=== PATIENT | male | born 1980 | race Caucasian/White ===

== ENCOUNTER 2017-07-25 14:50 | Emergency (ER) | payer OTHER ==
[2017-07-25 14:58] VITALS: BP 127/84; PULSE 84; RESP 18; TEMP 96.8
[2017-07-25] MEDS ORDERED: IBUPROFEN 600 MG TAB PO STA (15:36)
--- NOTE | 2017-07-25 15:42 | ED ---
Skin/Abscess/FB HPI - General Chief complaint: Skin/Abscess/Foreign Body Stated complaint: Bug Bite Time Seen by Provider: 07/25/17 15:06 Source: patient, RN notes reviewed Mode of arrival: ambulatory Limitations: no limitations - History of Present Illness Initial comments: This is a 36-year-old male who presents to the emergency department with chief complaint of bug bite. Patient states that he woke up yesterday morning and had redness and tenderness to his lateral right lower extremity. He states he believes he was bit by a spider. He reports spreading of redness and tenderness from his ankle up to his mid calf. He states that one month ago he moved to [place] and traveled here by a vehicle. He denies any history of blood clots or clotting disorders. Denies recent hospitalizations or surgeries. Denies fevers or chills, chest pain shortness of breath, abdominal pain, nausea or vomiting. - Related Data Previous Rx's Medication Instructions Recorded Sulfamethox-Tmp 800-160Mg [Bactrim 1 tab PO Q12HR #20 tab 07/25/17 DS 800-160 mg] Allergies Allergy/AdvReac Type Severity Reaction Status Date / Time No Known Allergies Allergy Verified 07/25/17 15:39 Review of Systems ROS Statement: Those systems with pertinent positive or pertinent negative responses have been documented in the HPI. ROS Other: All systems not noted in ROS Statement are negative. Past Medical History Past Medical History: No Reported History History of Any Multi-Drug Resistant Organisms: None Reported Past Surgical History: No Surgical Hx Reported Past Psychological History: Anxiety Smoking Status: Current every day smoker Past Alcohol Use History: Occasional Past Drug Use History: None Reported General Exam - General Exam Comments Initial Comments: General: Awake and alert, well-developed; in no apparent distress. HEENT: Head atraumatic, normocephalic. Pupils are equal, round and reactive to light. Extraocular movements intact. Oropharynx moist without erythema or exudate. Neck: Supple. Normal ROM. Cardiovascular: Regular rate and rhythm. No murmurs, rubs or gallops. Chest symmetrical. Respiratory: Lungs clear to auscultation bilaterally. No wheezes, rales or rhonchi. Normal respiratory effort with no use of accessory muscles. Musculoskeletal: Normal ROM bilateral upper and lower extremities. Ambulating normally. Skin: Muddy, warm and dry. Approximately 1 cm in diameter circular area of induration with central crusting and surrounding erythema that spreads from the right ankle up to the right mid calf. This area is tender. There is also tenderness on palpation of the proximal calf. Sensation is intact. Pedal pulses are 2+ equal and palpable bilaterally. Neurological: Alert and oriented x3. CN II-XII grossly intact. Speech is fluent and answers are appropriate. No focal neuro deficits. Psychiatric: Normal mood and affect. No overt signs of depression or anxiety noted. Limitations: no limitations Course Vital Signs 07/25/17 14:53 Temperature 96.8 F L Pulse Rate 84 Respiratory 18 Rate Blood Pressure 127/84 Medical Decision Making - Medical Decision Making This is a 36-year-old male who presents to the emergency department with chief complaint of right lower extremity bug bite. Patient states he believes he was bit by a spider 2 nights ago. He states he woke up with redness and swelling to his right ankle. Since then tenderness and redness has spread. On physical examination there is an erythematous central lesion with surrounding erythema that extends from the right ankle to the mid calf. This area is tender on palpation. Patient did report tenderness with palpation of the proximal calf. An ultrasound venous Doppler of the right lower extremity was obtained and revealed no evidence for an acute DVT. Patient is likely suffering from cellulitis and will be started on antibiotics. Patient given first dose here in the emergency department. Vital signs are stable and he is in no acute distress. He'll be discharged home at this time. All questions answered. - Radiology Data Radiology results: report reviewed Right lower extremity ultrasound venous doppler impression: Right lower extremity venous ultrasound negative for deep venous thrombosis. Disposition Clinical Impression: Cellulitis Disposition: HOME SELF-CARE Condition: Good Instructions: Cellulitis (ED), Insect Bite or Sting (ED) Additional Instructions: Please take medications as prescribed. Please follow up with primary care provider within 1-2 days. Return to emergency department if symptoms should worsen or any concerns arise. Prescriptions: Sulfamethox-Tmp 800-160Mg [Bactrim DS 800-160 mg] 1 tab PO Q12HR #20 tab Is patient prescribed a controlled substance at d/c from ED?: No Referrals: None,Stated [Primary Care Provider] - 1-2 days Time of Disposition: 16:41
--- NOTE | 2017-07-25 16:20 | US ---
EXAMINATION TYPE: US venous doppler duplex LE RT DATE OF EXAM: 07/25/2017 4:09 PM COMPARISON: NONE CLINICAL HISTORY: Pain. Patient believes he was bit by a spider on the right ankle. Redness and pain right ankle SIDE PERFORMED: Right TECHNIQUE: The lower extremity deep venous system is examined utilizing real time linear array sonog ros with graded compression, doppler sonography and color-flow sonography. VESSELS IMAGED: External Iliac Vein (EIV) Common Femoral Vein Deep Femoral Vein Greater Saphenous Vein * Femoral Vein Popliteal Vein Small Saphenous Vein * Proximal Calf Veins (* superficial vessels) Right Leg: Negative for DVT Small amount of edema visualized at the area of the patient's red lump at the right ankle. IMPRESSION: 1. Right lower extremity venous ultrasound negative for deep venous thrombosis. 2. Incidental note is made of mild edema at the level of the patient's redness and lump at the ankle.
[2017-07-25] MEDS ORDERED: SULFAMETHOX-TMP 800-160MG 1 EACH TAB PO STA (16:39)
== END 2017-07-25 16:48 | disposition home or self-care (01) ==
LOC: EC 14:50
DX: L03.115 Cellulitis of right lower limb (principal); F17.200 Nicotine dependence, unspecified, uncomplicated; W57.XXXA Bitten or stung by nonvenomous insect and other nonvenomous arthropods, initial encounter
CPT/HCPCS: 99283

== ENCOUNTER 2017-09-20 03:41 | Observation (INO) | payer MEDICARE, OTHER ==
[2017-09-20] MEDS ORDERED: ASPIRIN 81 MG PO STA (04:16)
[2017-09-20] MEDS ORDERED: NITROGLYCERIN SL TABS 0.4 MG TAB SUBLINGUAL STA ×3 (04:16)
--- NOTE | 2017-09-20 04:18 | ED ---
General Adult HPI - General Chief complaint: Chest Pain Stated complaint: CHEST PAIN Time Seen by Provider: 09/20/17 03:52 Source: patient, family, RN notes reviewed Mode of arrival: wheelchair Limitations: no limitations - History of Present Illness Initial comments: Patient is a pleasant 36-year-old male presenting to the emergency Department with complaints of chest discomfort. Onset of symptoms was a couple weeks ago. Became more significantly severe prior to arrival. Patient has sharp discomfort left sternal region. Earlier there was some radiation to the back however that has resolved. Patient does have associated nausea and some vomiting. No dyspnea. No diaphoresis. Patient does have a history of chronic severe reflux however that feels different from this. Patient has been considering surgery for his reflux. - Related Data Home Medications Medication Instructions Recorded Confirmed No Known Home Medications 09/20/17 09/20/17 Allergies Allergy/AdvReac Type Severity Reaction Status Date / Time No Known Allergies Allergy Verified 07/25/17 15:39 Review of Systems ROS Statement: Those systems with pertinent positive or pertinent negative responses have been documented in the HPI. ROS Other: All systems not noted in ROS Statement are negative. Constitutional: Denies: fever Eyes: Denies: eye pain ENT: Denies: ear pain Respiratory: Denies: cough Cardiovascular: Reports: chest pain Endocrine: Denies: fatigue Gastrointestinal: Reports: nausea, vomiting Genitourinary: Denies: dysuria Musculoskeletal: Denies: arthralgia Skin: Denies: rash Neurological: Denies: weakness Past Medical History Past Medical History: No Reported History Additional Past Medical History / Comment(s): Acid Reflux History of Any Multi-Drug Resistant Organisms: None Reported Past Surgical History: No Surgical Hx Reported Past Psychological History: Anxiety Smoking Status: Current every day smoker Past Alcohol Use History: None Reported, Occasional Past Drug Use History: None Reported General Exam Limitations: no limitations General appearance: alert, in no apparent distress Head exam: Present: atraumatic Eye exam: Present: normal appearance, PERRL ENT exam: Present: normal oropharynx Neck exam: Present: normal inspection Respiratory exam: Present: normal lung sounds bilaterally. Absent: chest wall tenderness Cardiovascular Exam: Present: regular rate, normal rhythm Expanded Peripheral pulses: 2+: Radial (R), Radial (L), Dorsalis Pedis (R), Dorsalis Pedis (L) GI/Abdominal exam: Present: soft. Absent: tenderness Extremities exam: Present: normal inspection. Absent: pedal edema, calf tenderness Neurological exam: Present: alert Psychiatric exam: Present: normal affect, normal mood Skin exam: Present: normal color Course Vital Signs 09/20/17 09/20/17 03:44 04:19 Temperature 98.3 F Pulse Rate 54 L 62 Respiratory 20 16 Rate Blood Pressure 137/91 137/93 O2 Sat by Pulse 100 100 Oximetry EKG Findings - EKG Comments: EKG Findings:: Sinus bradycardia 55. First-degree AV block with NE of 212. QRS 92. QT 410. QTc 392. Normal axis. Normal QRS. No acute ST change. Medical Decision Making - Medical Decision Making Patient reevaluated and resting comfortably in bed. Symptoms have resolved following nitroglycerin. Patient and family are updated on results and plan. Case was discussed in detail with Dr. Ward, who will admit for hospital call. - Lab Data Result diagrams: 09/20/17 04:29 09/20/17 04:29 Lab Results 09/20/17 09/20/17 09/20/17 Range/Units 04:29 04:29 04:29 WBC 12.1 H (3.8-10.6) k/uL RBC 4.87 (4.30-5.90) m/uL Hgb 13.7 (13.0-17.5) gm/dL Hct 43.6 (39.0-53.0) % MCV 89.5 (80.0-100.0) fL MCH 28.0 (25.0-35.0) pg MCHC 31.3 (31.0-37.0) g/dL RDW 13.8 (11.5-15.5) % Plt Count 201 (150-450) k/uL Neutrophils % 81 % Lymphocytes % 12 % Monocytes % 4 % Eosinophils % 3 % Basophils % 0 % Neutrophils # 9.8 H (1.3-7.7) k/uL Lymphocytes # 1.4 (1.0-4.8) k/uL Monocytes # 0.5 (0-1.0) k/uL Eosinophils # 0.3 (0-0.7) k/uL Basophils # 0.0 (0-0.2) k/uL PT (9.0-12.0) sec INR (<1.2) APTT (22.0-30.0) sec D-Dimer (<0.60) mg/L FEU Sodium 143 (137-145) mmol/L Potassium 4.0 (3.5-5.1) mmol/L Chloride 110 H (98-107) mmol/L Carbon Dioxide 24 (22-30) mmol/L Anion Gap 9 mmol/L BUN 13 (9-20) mg/dL Creatinine 0.82 (0.66-1.25) mg/dL Est GFR (CKD-EPI)AfAm >90 (>60 ml/min/1.73 sqM) Est GFR (CKD-EPI)NonAf >90 (>60 ml/min/1.73 sqM) Glucose 116 H (74-99) mg/dL Calcium 9.5 (8.4-10.2) mg/dL Magnesium 2.0 (1.6-2.3) mg/dL Total Bilirubin 0.3 (0.2-1.3) mg/dL AST 16 L (17-59) U/L ALT 28 (21-72) U/L Alkaline Phosphatase 51 (38-126) U/L Total Creatine Kinase 66 (55-170) U/L CK-MB (CK-2) 0.4 (0.0-2.4) ng/mL CK-MB (CK-2) Rel Index 0.6 Troponin I <0.012 (0.000-0.034) ng/mL Total Protein 6.3 (6.3-8.2) g/dL Albumin 4.0 (3.5-5.0) g/dL Amylase 66 (30-110) U/L Lipase 209 (23-300) U/L 09/20/17 Range/Units 04:29 WBC (3.8-10.6) k/uL RBC (4.30-5.90) m/uL Hgb (13.0-17.5) gm/dL Hct (39.0-53.0) % MCV (80.0-100.0) fL MCH (25.0-35.0) pg MCHC (31.0-37.0) g/dL RDW (11.5-15.5) % Plt Count (150-450) k/uL Neutrophils % % Lymphocytes % % Monocytes % % Eosinophils % % Basophils % % Neutrophils # (1.3-7.7) k/uL Lymphocytes # (1.0-4.8) k/uL Monocytes # (0-1.0) k/uL Eosinophils # (0-0.7) k/uL Basophils # (0-0.2) k/uL PT 9.9 (9.0-12.0) sec INR 1.0 (<1.2) APTT 23.2 (22.0-30.0) sec D-Dimer 0.25 (<0.60) mg/L FEU Sodium (137-145) mmol/L Potassium (3.5-5.1) mmol/L Chloride (98-107) mmol/L Carbon Dioxide (22-30) mmol/L Anion Gap mmol/L BUN (9-20) mg/dL Creatinine (0.66-1.25) mg/dL Est GFR (CKD-EPI)AfAm (>60 ml/min/1.73 sqM) Est GFR (CKD-EPI)NonAf (>60 ml/min/1.73 sqM) Glucose (74-99) mg/dL Calcium (8.4-10.2) mg/dL Magnesium (1.6-2.3) mg/dL Total Bilirubin (0.2-1.3) mg/dL AST (17-59) U/L ALT (21-72) U/L Alkaline Phosphatase (38-126) U/L Total Creatine Kinase (55-170) U/L CK-MB (CK-2) (0.0-2.4) ng/mL CK-MB (CK-2) Rel Index Troponin I (0.000-0.034) ng/mL Total Protein (6.3-8.2) g/dL Albumin (3.5-5.0) g/dL Amylase (30-110) U/L Lipase (23-300) U/L - Radiology Data Radiology results: image reviewed (Chest x-ray shows no acute process) Disposition Clinical Impression: Chest pain Disposition: ADMITTED IP TO THIS HOSP Is patient prescribed a controlled substance at d/c from ED?: No Referrals: None,Stated [Primary Care Provider] - 1-2 days Decision Time: 05:23
[2017-09-20 04:40] LABS: Basophils % (A) 0 %; Eosinophils # (A) 0.3 k/uL (0-0.7); Eosinophils % (A) 3 %; HCT 43.6 % (39.0-53.0); HGB 13.7 gm/dL (13.0-17.5); Lymphocytes # (A) 1.4 k/uL (1.0-4.8); Lymphocytes % (A) 12 %; MCHC 31.3 g/dL (31.0-37.0); MCV 89.5 fL (80.0-100.0); Mean Platelet Volume 7.8; Monocytes # (A) 0.5 k/uL (0-1.0); Monocytes % (A) 4 %; Neutrophils # (A) 9.8 k/uL (1.3-7.7); Neutrophils % (A) 81 %; Platelet Count 201 k/uL (150-450); RBC 4.87 m/uL (4.30-5.90); RDW 13.8 % (11.5-15.5); WBC 12.1 k/uL (3.8-10.6)
[2017-09-20 04:50] LABS: ALT 28 U/L (21-72); AST 16 U/L (17-59); Alkaline Phosphatase 51 U/L (38-126); Amylase 66 U/L (30-110); Anion Gap 9 mmol/L; Blood Urea Nitrogen 13 mg/dL (9-20); Calcium 9.5 mg/dL (8.4-10.2); Carbon Dioxide 24 mmol/L (22-30); Chloride 110 mmol/L (98-107); Glucose 116 mg/dL (74-99); Lipase 209 U/L (23-300); Sodium 143 mmol/L (137-145); Total Bilirubin 0.3 mg/dL (0.2-1.3); Total Protein 6.3 g/dL (6.3-8.2)
[2017-09-20 04:54] LABS: D-Dimer 0.25 mg/L FEU (<0.60); Partial Thromboplastin Time 23.2 sec (22.0-30.0); Prothrombin Time 9.9 sec (9.0-12.0)
[2017-09-20 04:59] LABS: Creatine Kinase 66 U/L (55-170)
[2017-09-20] MEDS ORDERED: METOCLOPRAMIDE 5 MG/ML 2 ML VIAL IVP STA (05:03)
[2017-09-20 05:12] LABS: Creatine Kinase MB 0.4 ng/mL (0.0-2.4); Troponin I <0.012 ng/mL (0.000-0.034)
--- NOTE | 2017-09-20 05:18 | XR ---
EXAM: XR Chest, 2 Views. CLINICAL HISTORY: Reason: Chest Pain TECHNIQUE: Frontal and lateral views of the chest. COMPARISON: No relevant prior studies available. FINDINGS: Lungs: Lung volumes are within normal limits. No evidence of airspace consolidation or acute interstitial abnormality. Pleural spaces: No pleural effusions. No pneumothorax. Heart: Unremarkable. No cardiomegaly. Mediastinum: No mediastinal widening or shift. Bones: Unremarkable. No acute fracture. IMPRESSION: Normal chest.
[2017-09-20] MEDS ORDERED: NITROGLYCERIN SL TABS 0.4 MG TAB SUBLINGUAL PRN (05:23)
[2017-09-20] MEDS: NITROGLYCERIN OINT 1 INCH/GM PACKET TOPICAL SCH ×4 (05:55→23:23)
--- NOTE | 2017-09-20 07:36 | HP ---
HISTORY AND PHYSICAL SUBJECTIVE: This 36-year-old white male presents to the hospital with chest discomfort over the past couple weeks, more significant prior to arrival. He had discomfort in the left sternal region, some radiation to the back, it has resolved. He had some nausea and vomiting. No dyspnea. No diaphoresis. Chronic reflux, GERD, which is different than this kind of pain. He is considering surgery for the reflux. Home medicines are nothing. REVIEW OF SYSTEMS: Fourteen-point review of systems negative except for mentioned in HPI. PAST MEDICAL HISTORY: GERD, anxiety. Current everyday smoker. No drug history. PHYSICAL EXAM: Vital signs stable, afebrile. She is alert and oriented x3. No apparent distress. NECK: Supple. No JVD. RESPIRATORY: Normal lung sounds. CARDIOVASCULAR: S1, S2. Peripheral pulses are normal. GI: Soft, nontender. EXTREMITIES: No cyanosis, clubbing, edema. NEUROLOGIC: Alert and oriented x3. PSYCH: Fair mood and affect. Temp 98.3, pulse 54 to 62, respiratory rate 16 to 20, blood pressure 130s over 90s O2 100% on room air. EKG sinus selena. White count is 12, hemoglobin 13.7. Nitroglycerin was given in the ER which helped chest pain x1. PLAN: Cardiology will be consulted. D-dimer is negative to rule out PE. Chest x-ray is negative. ASSESSMENT: 1. Atypical chest pain. 2. History gastroesophageal reflux disease. Cardiology consult. Will monitor. Please see further orders. Possible stress test will be needed. MMODL / IJN: [id number] /
[2017-09-20] MEDS ORDERED: LOSARTAN 50 MG TAB PO STA (08:14)
[2017-09-20] MEDS ORDERED: RX INFO: IV CONTRAST WAS GIVEN 1 EACH MISC MISCELLANE PRN (08:41)
--- NOTE | 2017-09-20 09:32 | CT ---
EXAMINATION TYPE: CT chest w con DATE OF EXAM: 09/20/2017 COMPARISON: Chest x-ray from earlier today HISTORY: Left sided chest pain and shortness of breath. CT DLP: 334.3 mGycm. Automated Exposure Control for Dose Reduction was Utilized. TECHNIQUE: CT scan of the thorax is performed following with IV Contrast, patient injected with 100 mL of Isovue M300. FINDINGS: LUNGS: Dependent atelectasis in both bases is present otherwise lungs are grossly clear. No suspici ous consolidation or groundglass opacity is seen. There is no pleural effusion or pneumothorax identi fied bilaterally. The tracheobronchial tree is patent. MEDIASTINUM: There are no greater than 1 cm hilar or mediastinal lymph nodes. No cardiomegaly or pe ricardial effusion is seen. OTHER: Gallbladder appears abnormal. It is somewhat contracted in appearance. There is mildly irregul ar mucosal enhancement with surrounding low density either reflecting wall thickening and/or perichol ecystic fluid. There is 2 mm calculus near junction of neck and cystic duct axial image 64 and eddy l image 43. No intrahepatic or extrahepatic ductal dilatation is seen. There is suspected slightly he terogeneous hyperdensity or inflammation of the adjacent liver (coronal image 33). Mild multilevel sp urring in the lower thoracic spine is present. IMPRESSION: 1. No suspicious acute cardiopulmonary process. 2. Probable acute cholecystitis related to obstructing calculus near junction of neck and cystic duct origin. Results communicated to emergency room covering physician Dr Wilson via telephone at time of dictation.
--- NOTE | 2017-09-20 09:33 | CONS ---
CONSULTATION CHIEF COMPLAINT: Chest pain. Michele is a 36-year-old gentleman with no significant past medical history who presented to hospital complaining of chest pain. He describes it as a sharp precordial pain that started in the middle of the night. He describes it as a sharp pain that radiated to his back. He also felt a little nauseous, but there is no dyspnea. No diaphoresis. The patient has chronic GERD, but he thinks that this chest discomfort is different. EKG does not reveal ischemic changes. So far he has had 1 set of troponin that is negative. Hemoglobin is normal at 13.7. D-dimer is normal at 0.25. PAST MEDICAL HISTORY: Past medical history is negative for hypertension, diabetes, dyslipidemia. MEDICATIONS: Medications include ibuprofen. FAMILY HISTORY: Significant for premature coronary artery disease. SOCIAL HISTORY: Significant for smoking and he smokes marijuana. REVIEW OF SYSTEMS: HEENT is unremarkable. CARDIAC: As described above. RESPIRATORY: Negative. GI: Negative. GENITOURINARY: Negative. ALLERGY/IMMUNOLOGICAL: Negative. SKIN: Negative. MUSCULOSKELETAL negative. ENDOCRINE: Negative. HEMATOLOGICAL: Negative. DERM: Negative. CONSTITUTIONAL: Negative. ONCOLOGICAL: Negative. Rest of the system review is not relevant. PHYSICAL EXAMINATION: On exam, comfortable at rest. Afebrile. Heart rate is 54 beats per minute, blood pressure is 105/70, respiratory rate 18, O2 sat is 99% on room air. There is no jugular venous distention. Carotid upstroke is normal. There is no bruit. Chest exam reveals good air entry bilaterally. Heart exam reveals first and second heart sounds. No gallop. No murmur. No rub. Abdomen is soft, nontender. Examination of extremities did not reveal any edema. Peripheral pulses are felt. 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 ASSESSMENT: Atypical chest pain. PLAN: I will obtain another set of troponin. If this is negative, he will undergo a stress echo and if that looks good he will be discharged home. If there is a problem, we will consider further workup. I advised him to quit smoking. MMODL / IJN: [id number] /
--- NOTE | 2017-09-20 09:55 | ED ---
Medical Decision Making - Medical Decision Making I was called by the radiologist and informed that the patient imaging revealed evidence of cholelithiasis with cholecystitis. It appeared that there is a gallstone impacted in the neck of the gallbladder. The case was discussed with Dr. Herron who does cover Dr. Ward. Patient will be consulted on by Dr. Herron he is in agreement with this. - Lab Data Result diagrams: 09/20/17 04:29 09/20/17 04:29 Lab Results 09/20/17 09/20/17 09/20/17 Range/Units 04:29 04:29 04:29 WBC 12.1 H (3.8-10.6) k/uL RBC 4.87 (4.30-5.90) m/uL Hgb 13.7 (13.0-17.5) gm/dL Hct 43.6 (39.0-53.0) % MCV 89.5 (80.0-100.0) fL MCH 28.0 (25.0-35.0) pg MCHC 31.3 (31.0-37.0) g/dL RDW 13.8 (11.5-15.5) % Plt Count 201 (150-450) k/uL Neutrophils % 81 % Lymphocytes % 12 % Monocytes % 4 % Eosinophils % 3 % Basophils % 0 % Neutrophils # 9.8 H (1.3-7.7) k/uL Lymphocytes # 1.4 (1.0-4.8) k/uL Monocytes # 0.5 (0-1.0) k/uL Eosinophils # 0.3 (0-0.7) k/uL Basophils # 0.0 (0-0.2) k/uL PT (9.0-12.0) sec INR (<1.2) APTT (22.0-30.0) sec D-Dimer (<0.60) mg/L FEU Sodium 143 (137-145) mmol/L Potassium 4.0 (3.5-5.1) mmol/L Chloride 110 H (98-107) mmol/L Carbon Dioxide 24 (22-30) mmol/L Anion Gap 9 mmol/L BUN 13 (9-20) mg/dL Creatinine 0.82 (0.66-1.25) mg/dL Est GFR (CKD-EPI)AfAm >90 (>60 ml/min/1.73 sqM) Est GFR (CKD-EPI)NonAf >90 (>60 ml/min/1.73 sqM) Glucose 116 H (74-99) mg/dL Calcium 9.5 (8.4-10.2) mg/dL Magnesium 2.0 (1.6-2.3) mg/dL Total Bilirubin 0.3 (0.2-1.3) mg/dL AST 16 L (17-59) U/L ALT 28 (21-72) U/L Alkaline Phosphatase 51 (38-126) U/L Total Creatine Kinase 66 (55-170) U/L CK-MB (CK-2) 0.4 (0.0-2.4) ng/mL CK-MB (CK-2) Rel Index 0.6 Troponin I <0.012 (0.000-0.034) ng/mL Total Protein 6.3 (6.3-8.2) g/dL Albumin 4.0 (3.5-5.0) g/dL Amylase 66 (30-110) U/L Lipase 209 (23-300) U/L 09/20/17 Range/Units 04:29 WBC (3.8-10.6) k/uL RBC (4.30-5.90) m/uL Hgb (13.0-17.5) gm/dL Hct (39.0-53.0) % MCV (80.0-100.0) fL MCH (25.0-35.0) pg MCHC (31.0-37.0) g/dL RDW (11.5-15.5) % Plt Count (150-450) k/uL Neutrophils % % Lymphocytes % % Monocytes % % Eosinophils % % Basophils % % Neutrophils # (1.3-7.7) k/uL Lymphocytes # (1.0-4.8) k/uL Monocytes # (0-1.0) k/uL Eosinophils # (0-0.7) k/uL Basophils # (0-0.2) k/uL PT 9.9 (9.0-12.0) sec INR 1.0 (<1.2) APTT 23.2 (22.0-30.0) sec D-Dimer 0.25 (<0.60) mg/L FEU Sodium (137-145) mmol/L Potassium (3.5-5.1) mmol/L Chloride (98-107) mmol/L Carbon Dioxide (22-30) mmol/L Anion Gap mmol/L BUN (9-20) mg/dL Creatinine (0.66-1.25) mg/dL Est GFR (CKD-EPI)AfAm (>60 ml/min/1.73 sqM) Est GFR (CKD-EPI)NonAf (>60 ml/min/1.73 sqM) Glucose (74-99) mg/dL Calcium (8.4-10.2) mg/dL Magnesium (1.6-2.3) mg/dL Total Bilirubin (0.2-1.3) mg/dL AST (17-59) U/L ALT (21-72) U/L Alkaline Phosphatase (38-126) U/L Total Creatine Kinase (55-170) U/L CK-MB (CK-2) (0.0-2.4) ng/mL CK-MB (CK-2) Rel Index Troponin I (0.000-0.034) ng/mL Total Protein (6.3-8.2) g/dL Albumin (3.5-5.0) g/dL Amylase (30-110) U/L Lipase (23-300) U/L Disposition Clinical Impression: Chest pain, Cholelithiasis with acute cholecystitis Disposition: ADMITTED IP TO THIS HOSP
[2017-09-20] MEDS ORDERED: ONDANSETRON 4 MG/2 ML VIAL IVP PRN (09:56)
[2017-09-20 12:15] LABS: Creatine Kinase 54 U/L (55-170)
[2017-09-20 12:26] LABS: Creatine Kinase MB 0.4 ng/mL (0.0-2.4); Troponin I <0.012 ng/mL (0.000-0.034)
--- NOTE | 2017-09-20 12:39 | ECHOF ---
Referral Reason:cp MEASUREMENTS -------- HEIGHT: 182.9 cm WEIGHT: 68.0 kg BP: RVIDd: 2.9 cm (< 3.3) IVSd: 0.9 cm (0.6 - 1.1) LVIDd: 3.7 cm (3.9 - 5.3) LVPWd: 1.1 cm (0.6 - 1.1) IVSs: 1.4 cm LVIDs: 3.1 cm LVPWs: 1.2 cm LA Diam: 2.6 cm (2.7 - 3.8) Ao Diam: 3.0 cm (2.0 - 3.7) AV Cusp: 2.0 cm (1.5 - 2.6) LA Diam: 2.4 cm (2.7 - 3.8) MV EXCURSION: 21.171 mm (> 18.000) MV EF SLOPE: 72 mm/s (70 - 150) EPSS: 0.8 cm MV E Jacob: 0.74 m/s MV DecT: 233 ms MV A Jacob: 0.66 m/s MV E/A Ratio: 1.13 RAP: 5.00 mmHg RVSP: 15.61 mmHg FINDINGS -------- Sinus rhythm. This was a technically good study. LV size, wall thickness and systolic function are normal, with an EF greater than 55%. The left deonte tricular size is normal. The right ventricle is normal in size. The left atrial size is normal. The right atrial size is normal. The aortic valve is trileaflet, and appears structurally normal. No aortic stenosis or regurgitation. Mild mitral annular calcification present. Mild mitral regurgitation is present. Mild tricuspid regurgitation present. There is no evidence of pulmonary hypertension. The right v entricular systolic pressure, as measured by Doppler, is 15.61mmHg. There is no pulmonic regurgitation present. The aortic root size is normal. There is no pericardial effusion. CONCLUSIONS -------- 1. LV size, wall thickness and systolic function are normal, with an EF greater than 55%. 2. The left ventricular size is normal. 3. The right ventricle is normal in size. 4. The left atrial size is normal. 5. The right atrial size is normal. 6. The aortic valve is trileaflet, and appears structurally normal. No aortic stenosis or regurgitati on. 7. Mild mitral annular calcification present. 8. Mild mitral regurgitation is present. 9. Mild tricuspid regurgitation present. 10. There is no evidence of pulmonary hypertension. 11. The right ventricular systolic pressure, as measured by Doppler, is 15.61mmHg. 12. There is no pulmonic regurgitation present. 13. The aortic root size is normal. 14. There is no pericardial effusion. SENIOR MICROSTRATEGY DEVELOPER: Petty Huff RDCS
[2017-09-20] MEDS: HYDROmorphone 1 MG/ML 1 ML SYRINGE IVP PRN ×3 (17:20→22:50)
[2017-09-20 17:21] LABS: Creatine Kinase 56 U/L (55-170)
[2017-09-20 17:32] LABS: Creatine Kinase MB 0.4 ng/mL (0.0-2.4); Troponin I <0.012 ng/mL (0.000-0.034)
[2017-09-20] MEDS: NICOTINE 14MG/24HR PATCH TRANSDERM SCH (18:56)
--- NOTE | 2017-09-20 19:10 | P.GSCN ---
History of Present Illness Consult date: 09/20/17 Reason for Consult: Cholecystitis History of present illness: This is a 36-year-old male who presented to the emergency room with complaints of abdominal and chest pain. He was worked up with CAT scan. He is found evidence of acute cholecystitis on CAT scan. The patient states the pain is mainly right upper quadrant which radiates to his back and right chest. Past Medical History Past Medical History: No Reported History Additional Past Medical History / Comment(s): Acid Reflux, anxiety History of Any Multi-Drug Resistant Organisms: None Reported Past Surgical History: Tonsillectomy Past Anesthesia/Blood Transfusion Reactions: No Reported Reaction Smoking Status: Current every day smoker - Past Family History Mother Family Medical History: COPD Additional Family Medical History / Comment(s): grandmother- chf Father Family Medical History: Cancer Medications and Allergies Home Medications Medication Instructions Recorded Confirmed Type Ibuprofen [Motrin Ib] 600 - 800 mg PO Q6H PRN 09/20/17 09/20/17 History Allergies Allergy/AdvReac Type Severity Reaction Status Date / Time No Known Allergies Allergy Verified 09/20/17 07:37 Surgical - Exam Vital Signs Temp Pulse Resp BP Pulse Ox 98.3 F 54 L 20 137/91 100 09/20/17 03:44 09/20/17 03:44 09/20/17 03:44 09/20/17 03:44 09/20/17 03:44 - General well developed, no distress - Eyes PERRL - ENT normal pinna - Neck no masses - Respiratory normal expansion - Cardiovascular Rhythm: regular - Abdomen Mild right upper quadrant tenderness Abdomen: soft Results - Labs 09/20/17 04:29 09/20/17 04:29 Abnormal Lab Results - Last 24 Hours (Table) 09/20/17 09/20/17 09/20/17 Range/Units 04:29 04:29 11:33 WBC 12.1 H (3.8-10.6) k/uL Neutrophils # 9.8 H (1.3-7.7) k/uL Chloride 110 H (98-107) mmol/L Glucose 116 H (74-99) mg/dL AST 16 L (17-59) U/L Total Creatine Kinase 54 L (55-170) U/L Diabetes panel 09/20/17 Range/Units 04:29 Sodium 143 (137-145) mmol/L Potassium 4.0 (3.5-5.1) mmol/L Chloride 110 H (98-107) mmol/L Carbon Dioxide 24 (22-30) mmol/L BUN 13 (9-20) mg/dL Creatinine 0.82 (0.66-1.25) mg/dL Glucose 116 H (74-99) mg/dL Calcium 9.5 (8.4-10.2) mg/dL AST 16 L (17-59) U/L ALT 28 (21-72) U/L Alkaline Phosphatase 51 (38-126) U/L Total Protein 6.3 (6.3-8.2) g/dL Albumin 4.0 (3.5-5.0) g/dL Calcium panel 09/20/17 Range/Units 04:29 Calcium 9.5 (8.4-10.2) mg/dL Albumin 4.0 (3.5-5.0) g/dL Pituitary panel 09/20/17 Range/Units 04:29 Sodium 143 (137-145) mmol/L Potassium 4.0 (3.5-5.1) mmol/L Chloride 110 H (98-107) mmol/L Carbon Dioxide 24 (22-30) mmol/L BUN 13 (9-20) mg/dL Creatinine 0.82 (0.66-1.25) mg/dL Glucose 116 H (74-99) mg/dL Calcium 9.5 (8.4-10.2) mg/dL Adrenal panel 09/20/17 Range/Units 04:29 Sodium 143 (137-145) mmol/L Potassium 4.0 (3.5-5.1) mmol/L Chloride 110 H (98-107) mmol/L Carbon Dioxide 24 (22-30) mmol/L BUN 13 (9-20) mg/dL Creatinine 0.82 (0.66-1.25) mg/dL Glucose 116 H (74-99) mg/dL Calcium 9.5 (8.4-10.2) mg/dL Total Bilirubin 0.3 (0.2-1.3) mg/dL AST 16 L (17-59) U/L ALT 28 (21-72) U/L Alkaline Phosphatase 51 (38-126) U/L Total Protein 6.3 (6.3-8.2) g/dL Albumin 4.0 (3.5-5.0) g/dL - Imaging CT scan - abdomen: report reviewed (Acute cholecystitis with gallstone impacted neck of gallbladder) Assessment and Plan Plan: Acute cholecystitis. Patient will undergo laparoscopic ostectomy in the a.m.
[2017-09-21] MEDS ORDERED: DEXAMETHASONE SOD PHOSPHATE 10 MG/ML 1 ML VIAL IV ONE (01:44)
[2017-09-21] MEDS ORDERED: ONDANSETRON 4 MG/2 ML VIAL IVP ONE (01:44)
[2017-09-21] MEDS ORDERED: HYDROmorphone 1 MG/ML 1 ML SYRINGE IVP PRN (01:44)
[2017-09-21] MEDS: HYDROmorphone 1 MG/ML 1 ML SYRINGE IVP PRN ×6 (01:46→23:59)
[2017-09-21 02:45] LABS: Cholesterol 154 mg/dL (<200); HDL Cholesterol 27 mg/dL (40-60); LDL Cholesterol,Calculated 103 mg/dL (0-99); Triglycerides 119 mg/dL (<150)
[2017-09-21] MEDS ORDERED: LACTATED RINGERS 1,000 ML IV ONE (07:55)
[2017-09-21] MEDS ORDERED: HEPARIN SODIUM,PORCINE 5,000 UNIT/ML 1 ML VIAL SQ ONE (08:15)
[2017-09-21] MEDS ORDERED: MIDAZOLAM 2 MG/2 ML VIAL IV ONE (08:15)
[2017-09-21] MEDS ORDERED: SCOPOLAMINE 1.5MG/72HR PATCH TRANSDERM ONE (08:45)
[2017-09-21] MEDS: ceFAZolin IN SWFI 2 GM/20 ML SYRINGE IVP ONE ×2 (08:53→09:08)
[2017-09-21] MEDS ORDERED: ROCURONIUM BROMIDE 10 MG/ML 10 ML VIAL IV ONE (09:03)
[2017-09-21] MEDS ORDERED: NEOSTIGMINE 1 MG/ML 10 ML VIAL ONE (09:03)
[2017-09-21] MEDS ORDERED: LIDOCAINE 1% INJ 10MG/ML (20 ML MDV) ONE (09:03)
[2017-09-21] MEDS ORDERED: GLYCOPYRROLATE 0.2 MG/ML 2 ML VIAL ONE (09:03)
[2017-09-21] MEDS ORDERED: PROPOFOL 10 MG/ML 20 ML VIAL IV ONE (09:03)
[2017-09-21] MEDS ORDERED: SUCCINYLCHOLINE CHLORIDE 100 MG/5 ML SYR IV ONE (09:03)
[2017-09-21] MEDS ORDERED: KETOROLAC 30 MG/ML 1 ML VIAL ONE (09:03)
[2017-09-21] MEDS ORDERED: fentaNYL (PF) 50 MCG/ML 2 ML AMP ONE (09:03)
[2017-09-21] MEDS ORDERED: ROPIVACAINE 5 MG/ML 30 ML VIAL MISCELLANE ONE (09:23)
--- NOTE | 2017-09-21 09:49 | P.OP ---
Date of Procedure: 09/21/17 Preoperative Diagnosis: Cholecystitis Postoperative Diagnosis: Cholecystitis Procedure(s) Performed: Laparoscopic cholecystectomy Anesthesia: ZARINA Surgeon: Merritt Herron Estimated Blood Loss (ml): 5 Pathology: other (Gallbladder) Condition: stable Disposition: PACU Description of Procedure: The patient was placed on the operating table. The patient received a general endotracheal tube anesthesia. The patients abdomen was prepped and draped in the usual sterile fashion. Through an infraumbilical stab incision, the fascia of the anterior abdominal wall was grasped with a pair of Kochers and then the Veress needle was placed in the peritoneal cavity. Position of the Veress needle was confirmed with positive drop test. The abdomen was then insufflated. After adequate insufflation, the 10 mm trocar was placed in the peritoneal cavity. Following this the laparoscope was placed in the peritoneal cavity. The patient was placed in the head-up, right side up position and then a 5 mm trocar was placed in the right lateral and right subcostal position under direct visualization. A 8 mm trocar was placed in the epigastric position. The gallbladder was grasped in the fundus and infundibulum. Traction on the gallbladder was placed in the lateral and the cephalad positions. The triangle of Calot was visualized.. The cystic duct was bluntly dissected until the union of the cystic duct and common bile duct was seen. The cystic duct was then divided and sealed with the Harmonic scissors. A PDS Endoloop was then placed throughout the cystic duct stump. The cystic artery divided and sealed with the Harmonic scissors. The gallbladder was then removed from the liver bed using Harmonic scissors. The gallbladder was then extracted through the epigastric port site. Operative field was checked for any bleeding spots and Harmonic scissors was used to coagulate the liver bed. The abdomen was irrigated. The trocars were removed. The skin was closed using interrupted 3-0 Vicryl suture. Dermabond dressing were applied. The patient tolerated the procedure well.
[2017-09-21] MEDS: NITROGLYCERIN OINT 1 INCH/GM PACKET TOPICAL SCH ×3 (11:05→18:35)
[2017-09-21] MEDS: ASPIRIN 325 MG TAB PO SCH (11:05)
[2017-09-21] MEDS: NICOTINE 14MG/24HR PATCH TRANSDERM SCH (11:05)
[2017-09-21] MEDS: LACTATED RINGERS 1,000 ML IV SCH (11:06)
[2017-09-22] MEDS: NITROGLYCERIN OINT 1 INCH/GM PACKET TOPICAL SCH ×2 (02:33→05:15)
[2017-09-22] MEDS: LACTATED RINGERS 1,000 ML IV SCH (02:33)
[2017-09-22] MEDS: HYDROmorphone 1 MG/ML 1 ML SYRINGE IVP PRN ×3 (02:46→08:43)
--- NOTE | 2017-09-22 05:04 | PN ---
PROGRESS NOTE SUBJECTIVE: 36-year-old white male, status post cholecystectomy. Still has a lot of abdominal pain. Diet will slowly be advanced. Cardiovascular: S1-S2. Lungs clear. GI soft. Incisions are clean, dry, intact x5. ASSESSMENT: 1. Status post cholecystectomy. 2. Atypical chest pain. Continue current treatments. Possible discharge home tomorrow on pain medicine. MMODL / IJN: [id number] /
[2017-09-22] MEDS: ASPIRIN 325 MG TAB PO SCH (08:44)
[2017-09-22] MEDS: NICOTINE 14MG/24HR PATCH TRANSDERM SCH (08:45)
[2017-09-22 08:47] VITALS: RESP 16
[2017-09-22] MEDS ORDERED: HYDROmorphone 4 MG TABLET PO PRN (11:04)
[2017-09-22 11:27] VITALS: BP 128/81; PULSE 46; TEMP 98.5
--- NOTE | 2017-09-22 11:57 | P.PN ---
Subjective Pt is seen and examined resting comfortably in bed. He denies any further symptoms of chest pain. Complains of pain at the incision site of right upper abdomen. Cardiac enzymes negative x3, LDL 103, HDL 27. Blood pressure 128/81 heart rate 46. Objective - Vital Signs Vital signs: Vital Signs Temp 98.5 F 09/22/17 11:26 Pulse 46 L 09/22/17 11:26 Resp 16 09/22/17 11:26 BP 128/81 09/22/17 11:26 Pulse Ox 100 09/22/17 11:26 Intake & Output 09/21/17 09/22/17 09/22/17 18:59 06:59 18:59 Intake Total 1466 Output Total 5 Balance 1461 Intake: IV 750 Oral 716 Output: Estimated Blood Loss 5 Other: Voiding Method Toilet Toilet # Voids 1 2 1 - Exam GENERAL: Well-appearing, well-nourished and in no acute distress. NECK: Supple without JVD or thyromegaly. LUNGS: Breath sounds clear to auscultation bilaterally. Respiration equal and unlabored. No wheezes, rales or rhonchi. HEART: Regular rate and rhythm without murmurs, rubs or gallops. S1 and S2 heard. EXTREMITIES: Normal range of motion, no edema. No clubbing or cyanosis. Peripheral pulses intact. - Labs CBC & Chem 7: 09/20/17 04:29 09/20/17 04:29 Assessment and Plan Assessment: ASSESSMENT Chest pain, atypical. An acute coronary event has been ruled out with no EKG evidence of ischemia and negative cardiac enzymes. Acute cholecystitis status post cholecystectomy Dyslipidemia, mild Chronic nicotine dependence PLAN Stable from a cardiac perspective. Lifestyle modifications recommended for decreasing of LDL cholesterol. Smoking cessation recommended. Follow-up with Dr. Greene in 2-3 weeks for outpatient stress testing. The above impression and plan of care have been discussed and directed by the signing physician. Nighat Cruz, nurse practitioner, acting as scribe for signing physician.
== END 2017-09-22 12:23 | disposition home or self-care (01) ==
LOC: EC 03:41 → 3OBS 05:24
PROVIDERS: ADMIT Family Medicine; ATTEND Family Medicine
DX: K80.12 Calculus of gallbladder with acute and chronic cholecystitis without obstruction (principal); R07.89 Other chest pain; E78.5 Hyperlipidemia, unspecified; K21.9 Gastro-esophageal reflux disease without esophagitis; F41.9 Anxiety disorder, unspecified; F12.90 Cannabis use, unspecified, uncomplicated; F17.200 Nicotine dependence, unspecified, uncomplicated; Z82.49 Family history of ischemic heart disease and other diseases of the circulatory system; Z82.5 Family history of asthma and other chronic lower respiratory diseases
CPT/HCPCS: 47562; 96374 ×2; 99285 ×2; 93005 ×2; 96375; 96376 ×2; 36415; 93306; 85379; 88304; 80061; 80053; 82150; 82550; 82553; 83690; 83735; 84484; 85025; 85610; 85730; 71046; 71260; G0378 ×3; S4990 ×3; J2250; J1644; J1100; J2710; J2765; J2405; J2001; J3010; J1885; J1170 ×3; J2795; J0330; J2704; J0690; Q9967

== ENCOUNTER 2017-12-02 16:43 | Emergency (ER) | payer MEDICARE, OTHER ==
[2017-12-02 17:05] VITALS: BP 131/80; TEMP 98.3
[2017-12-02] MEDS ORDERED: IPRATROPIUM-ALBUTEROL 3 ML NEB INHALATION STA (17:22)
[2017-12-02] MEDS ORDERED: methylPREDNISolone SOD SUCCI 125 MG/2 ML VIAL IM ONE (17:23)
[2017-12-02 17:30] VITALS: RESP 16
--- NOTE | 2017-12-02 17:35 | ED ---
General Adult HPI - General Chief complaint: Upper Respiratory Infection Stated complaint: Cough Time Seen by Provider: 12/02/17 17:06 Source: patient, RN notes reviewed, old records reviewed Mode of arrival: ambulatory Limitations: no limitations - History of Present Illness Initial comments: This Patient is a 36-year-old male presents stating with cough congestion for the past 2 weeks. Patient reports that he is a smoker. He states he vomited hard time getting his sputum up. Patient states that he has had no fevers or chills. He denies any abdominal pain. He is at her times a day and I due to coughing. Patient denies any recent fever, chills, shortness of breath, chest pain, back pain, abdominal pain, nausea vomiting, numbness or tingling, dysuria or hematuria, constipation or diarrhea, headaches or visual changes, or any other current symptoms - Related Data Home Medications Medication Instructions Recorded Confirmed Ibuprofen [Motrin Ib] 600 - 800 mg PO Q6H PRN 09/20/17 09/20/17 Previous Rx's Medication Instructions Recorded Docusate [Colace] 100 mg PO BID #20 capsule 09/21/17 HYDROcodone/APAP 7.5-325MG [Viper 1 tab PO Q4H PRN 3 Days #18 tab 09/21/17 7.5-325] Albuterol Inhaler [Ventolin Hfa 1 - 2 puff INHALATION RT-Q6H PRN 12/02/17 Inhaler] #1 inhaler Azithromycin [Zithromax] 250 mg PO DIRECTED #6 tab 12/02/17 Promethazine/Dextromethorphan 5 ml PO TID #120 ml 12/02/17 [Phenergan DM Syrup] predniSONE 50 mg PO DAILY #7 tablet 12/02/17 Allergies Allergy/AdvReac Type Severity Reaction Status Date / Time No Known Allergies Allergy Verified 09/21/17 07:59 Review of Systems ROS Statement: Those systems with pertinent positive or pertinent negative responses have been documented in the HPI. ROS Other: All systems not noted in ROS Statement are negative. Past Medical History Past Medical History: No Reported History Additional Past Medical History / Comment(s): Acid Reflux, anxiety History of Any Multi-Drug Resistant Organisms: None Reported Past Surgical History: Tonsillectomy Past Anesthesia/Blood Transfusion Reactions: No Reported Reaction Past Psychological History: Anxiety Smoking Status: Current every day smoker Past Alcohol Use History: None Reported Past Drug Use History: Marijuana - Past Family History Mother Family Medical History: COPD Additional Family Medical History / Comment(s): grandmother- chf Father Family Medical History: Cancer General Exam - General Exam Comments Initial Comments: 36-year-old male. Alert and oriented. No significant distress. Limitations: no limitations General appearance: alert, in no apparent distress Head exam: Present: atraumatic, normocephalic, normal inspection Eye exam: Present: normal appearance, PERRL, EOMI. Absent: scleral icterus, conjunctival injection, periorbital swelling ENT exam: Present: normal exam, mucous membranes moist Neck exam: Present: normal inspection. Absent: tenderness, meningismus, lymphadenopathy Respiratory exam: Present: normal lung sounds bilaterally, wheezes, other ( Wheezing and nonproductive cough.). Absent: respiratory distress, rales, rhonchi, stridor Cardiovascular Exam: Present: regular rate, normal rhythm, normal heart sounds. Absent: systolic murmur, diastolic murmur, rubs, gallop, clicks GI/Abdominal exam: Present: soft, normal bowel sounds. Absent: distended, tenderness, guarding, rebound, rigid Extremities exam: Present: normal inspection, full ROM, normal capillary refill. Absent: tenderness, pedal edema, joint swelling, calf tenderness Back exam: Present: normal inspection Neurological exam: Present: alert Psychiatric exam: Present: normal affect, normal mood Skin exam: Present: warm, dry, intact, normal color. Absent: rash Course Vital Signs 12/02/17 12/02/17 12/02/17 17:01 17:30 17:38 Temperature 98.3 F Pulse Rate 67 68 66 Respiratory 20 16 16 Rate Blood Pressure 131/80 O2 Sat by Pulse 99 Oximetry Medical Decision Making - Medical Decision Making 36 [facility] sensors are symptoms she complaint of cough and congestion for the past 2 weeks. He does have significant cough, is nonproductive. Chest x-ray was negative for pneumonia. Vital signs are stable. Again Patient breathing treatment and had does have improvement of his wheezing and symptoms. Patient is heavily discharged with prescription for steroids, azithromycin for bronchitis, cough syrup and inhaler. Had an extensive discussion on since the smoking cessation. Return parameters were discussed. - Radiology Data Radiology results: report reviewed Normal chest x-ray noted. Disposition Clinical Impression: Bronchitis Disposition: HOME SELF-CARE Condition: Good Instructions: Upper Respiratory Infection (ED) Additional Instructions: Patient has a follow-up with primary care provider. Take medications as prescribed. Discontinue smoking. Return to emergency department if any alarming signs or symptoms occur. Prescriptions: Albuterol Inhaler [Ventolin Hfa Inhaler] 1 - 2 puff INHALATION RT-Q6H PRN #1 inhaler PRN Reason: Shortness Of Breath Azithromycin [Zithromax] 250 mg PO DIRECTED #6 tab predniSONE 50 mg PO DAILY #7 tablet Promethazine/Dextromethorphan [Phenergan DM Syrup] 5 ml PO TID #120 ml Is patient prescribed a controlled substance at d/c from ED?: No Referrals: None,Stated [Primary Care Provider] - 1-2 days Darby Crowell MD [REFERRING] - 1-2 days Time of Disposition: 18:13
[2017-12-02 17:39] VITALS: PULSE 66
--- NOTE | 2017-12-02 17:59 | XR ---
EXAMINATION TYPE: XR chest 2V DATE OF EXAM: 12/02/2017 COMPARISON: Chest x-ray and CT chest September 20, 2017 HISTORY: Chest pain per order. Upper respiratory infection and shortness of breath. TECHNIQUE: Frontal and lateral views of the chest are obtained. FINDINGS: There is no focal air space opacity, pleural effusion, or pneumothorax seen. The cardiac silhouette size is within normal limits. The osseous structures are intact. IMPRESSION: No acute cardiopulmonary process. No significant change from prior.
== END 2017-12-02 18:26 | disposition home or self-care (01) ==
LOC: EC 16:43
DX: J40 Bronchitis, not specified as acute or chronic (principal); F17.200 Nicotine dependence, unspecified, uncomplicated; Z71.6 Tobacco abuse counseling
CPT/HCPCS: 94640; 71046; 99284; 96372; J2930